=== PATIENT | female | born 1995 | race Caucasian/White ===

== ENCOUNTER 2021-02-19 15:55 | Outpatient (CLI) | payer OTHER ==
[~2021-02-19] VITALS: Ht 160 cm; Wt 56.7 kg
== END 2021-02-19 21:20 | disposition home or self-care (01) ==
LOC: GENOP 15:55
DX: O21.2 Late vomiting of pregnancy (principal); O47.02 False labor before 37 completed weeks of gestation, second trimester; O36.8120 Decreased fetal movements, second trimester, not applicable or unspecified; O99.342 Other mental disorders complicating pregnancy, second trimester; F41.9 Anxiety disorder, unspecified; F32.9 Major depressive disorder, single episode, unspecified; Z79.899 Other long term (current) drug therapy; Z3A.26 26 weeks gestation of pregnancy
CPT/HCPCS: 82731; 96360; 96361; 96367; 96372; 96374; C9113; J2405; J3105; J7120

== ENCOUNTER → 2021-02-21 | Outpatient (CLI) | payer OTHER | LOC: GENOP 16:26 | DX: O99.891 Other specified diseases and conditions complicating pregnancy (principal); R10.9 Unspecified abdominal pain; R11.0 Nausea; Z3A.27 27 weeks gestation of pregnancy; O99.342 Other mental disorders complicating pregnancy, second trimester; F32.9 Major depressive disorder, single episode, unspecified; F41.9 Anxiety disorder, unspecified | CPT/HCPCS: 81001; 96360; 96361; 96367; 96372; J0702; J2405; J7120 ==

== ENCOUNTER 2021-05-01 15:29 | Emergency (ER) | payer OTHER ==
[~2021-05-01] VITALS: Ht 160 cm; Wt 65.8 kg
== END 2021-05-01 22:07 | disposition home or self-care (01) ==
LOC: ER1 15:29
DX: U07.1 COVID-19 (principal); Z23 Encounter for immunization
CPT/HCPCS: 0240U; 87081; 87880; 99283; M0245

== ENCOUNTER 2021-05-18 05:31 | Inpatient (IN) | payer OTHER ==
[2021-05-18 06:57] LABS: HEMOGLOBIN 10.7 gm/dl (12.3-15.3); RED BLOOD COUNT 3.64 M/UL (4.00-5.10)
[2021-05-19 05:52] LABS: HEMOGLOBIN 9.7 gm/dl (12.3-15.3)
[2021-05-20] MEDS ORDERED: HYDROCODON-ACE1 EAC6 PO (11:55)
[2021-05-20] MEDS ORDERED: COLACE 100MG C100 MG PO (11:55)
[2021-05-20] MEDS ORDERED: IBUPROFEN600 MG PO (11:55)
== END 2021-05-20 15:17 | disposition home or self-care (01) | DRG 788 ==
LOC: OB 05:31
PROVIDERS: ADMIT Obstetrics & Gynecology
PROC: 10D00Z1 Extraction of Products of Conception, Low, Open Approach (ICD-10-PCS; principal; 2021-05-18 07:30)
DX: O32.1XX0 Maternal care for breech presentation, not applicable or unspecified (principal); O99.344 Other mental disorders complicating childbirth; Z3A.39 39 weeks gestation of pregnancy; Z20.822 Contact with and (suspected) exposure to COVID-19; Z37.0 Single live birth; O62.2 Other uterine inertia; F41.9 Anxiety disorder, unspecified; F32.A Depression, unspecified; Z82.49 Family history of ischemic heart disease and other diseases of the circulatory system; O69.81X0 Labor and delivery complicated by cord around neck, without compression, not applicable or unspecified
CPT/HCPCS: 36415; 81001; 82800; 85014; 85018; 85025; 90707; 90715; C9113; J0690; J1885; J2210; J2274; J2370; J2405; J2590; J3010; J7120